=== PATIENT | male | born 1965 | race Caucasian/White ===

== ENCOUNTER 2017-12-22 02:25 | Emergency (ER) | payer SELFPAY ==
[2017-12-22] MEDS ORDERED: ASPIRIN 81 MG CHEW TAB PO ONE (02:36)
[2017-12-22] MEDS ORDERED: ASPIRIN 81 MG CHEW TAB ONE (02:36)
--- NOTE | 2017-12-22 02:38 | ED Physician Documentation ---
Chest Pain - HISTORIAN Historian: patient - HPI Stated Complaint: chest pain Chief Complaint: Chest Pain Onset: days ago (3) Timing: sudden onset Duration: waxing, waning Last known Well Date: 12/20/17 Last Known Well Time: 09:00 Last known Well Code/Unknown Code: Unknown Context: other (slight improvement with belching. 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 He states the pain started to increase over night and he had some pain in his left arm and wanted to come to the ER. He did not take any OTC meds for relief. Denies any history of TN or heart concerns) - ROS CONST: none MS/LYMPH: none GI/: none EYES/ENT: none SKIN/ENDO: none NEURO/PSYCH: none - PAST HX TN risk factors: other (reflux ) TAD/AAA risk factors: none Neuro deficit: none GI disease: GERD Lung disease: none Surgeries/Procedures: none Immunizations: referred to PCP Allergies/Adverse Reactions: Allergies Allergy/AdvReac Type Severity Reaction Status Date / Time No Known Allergies Allergy Verified 12/22/17 03:06 Home Medications: Ambulatory Orders Medication Instructions Recorded Omeprazole [Prilosec] 40 mg PO DAILY 12/22/17 - SOCIAL HX Smoking History: quit greater than 1 year Alcohol Use: none Drug Use: none - FAMILY HX Family HX: none - REVIEWED ASSESSMENTS Nursing Assessment Reviewed: Yes Vitals Reviewed: Yes Progress - Progress Progress: 0315: feels nausea after med and states like before after vomiting he feels better. DG 0350: less pain, nausea improved. DG ED Results Lab/Radiology - Radiology Radiology Impressions: PA and lateral chest Clinical history: CXR, CHEST PAIN X3 DAYS, WORSENING Findings: Examination of the chest in PA and lateral views with no prior films for comparison demonstrates lungs to be clear. Cardiovascular and mediastinal silhouettes are within normal limits. Bony thorax is intact. Impression: 1. Negative chest. Electronically signed on Dec 22, 2017 3:57:10 AM CDT by: Mj Aldana - Orders Orders: ED Orders Category Date Time Status Continuous EKG monitoring Q30M Care 12/22/17 02:37 Ordered Continuous Pulse Oximetry Q30M Care 12/22/17 02:[address] IV Lock 1T Care 12/22/17 02:37 Ordered CBC/PLATELET/DIFF Routine Lab 12/22/17 02:37 Ordered CKMB Stat Lab 12/22/17 Ordered CMP Routine Lab 12/22/17 02:37 Ordered CREATINE KINASE Routine Lab 12/22/17 02:37 Ordered TROPONIN I (cTnI) Stat Lab 12/22/17 02:37 Ordered Aspirin Med 12/22/17 02:36 Once 324 mg PO NOW ONE Oxygen Daily Oxygen 12/22/17 02:45 Ordered EKG WITH COMPARISON Stat Ther 12/22/17 02:37 Ordered Chest Pain Physical Exam - EXAM General Appearance: no acute distress, alert EENT: eye inspection normal Neck: nml inspection Respiratory: no resp. distress, chest non-tender, nml breath sounds CVS: reg. rate & rhythm, no murmur Abdomen: soft, normal bowel sounds Skin: warm/dry, normal color Extremities: non-tender, normal range of motion Neuro: oriented X3, CN's nml as tested, motor nml, sensation nml, mood/affect nml, cognition normal Discharge Clincal Impression: Reflux esophagitis Comments: 1. take Prilosec daily 2. follow up with PCP 2-4 days 3. Karnes diet 4. Decrease caffeine 5. Return to ER for increasing symptoms Condition: Stable Disposition: 01 HOME, SELF-CARE Decision to Admit: NO Date of Decison to Admit: 12/22/17 Decision Time: 04:12
[2017-12-22] MEDS ORDERED: MAG HYDROX/ALUMINUM HYD/SIMETH 30 ML, Lidocaine 2%Visc 15ml 20 MG, PHENobarb/HYOSCY/ATR... PO ONE ×3 (03:05)
[2017-12-22 03:07] LABS: BASOPHILS % 0.8 (0.0-1.5); EOSINOPHILS % 2.8 % (0.0-6.8); MEAN CORPUSCULAR HEMOGLOBIN 29.6 pg (28.0-34.0); MEAN CORPUSCULAR VOLUME 89.7 fl (80.0-100.0); MONOCYTES % 5.2 % (0.0-11.0); NEUTROPHILS # 4.8 # k/uL (1.4-7.7)
[2017-12-22] MEDS ORDERED: MAG HYDROX/ALUMINUM HYD/SIMETH 30 ML UDC PO ONE (03:08)
[2017-12-22] MEDS ORDERED: Lidocaine 2%Visc 15ml 20 MG/ML UDC ONE (03:08)
[2017-12-22] MEDS ORDERED: ONDANSETRON HCL/PF 4 MG/ 2ML VIAL IVP ONE (03:15)
[2017-12-22] MEDS ORDERED: ONDANSETRON HCL/PF 4 MG/ 2ML VIAL ONE (03:16)
[2017-12-22 03:25] LABS: eGFR (Non-African) > 60
[2017-12-22] MEDS ORDERED: PANTOPRAZOLE SODIUM INJ. 40 MG VIAL ONE (03:39)
[2017-12-22] MEDS ORDERED: 0.9 % SODIUM CHLORIDE 100 ML IV ONE (03:40)
[2017-12-22] MEDS ORDERED: PANTOPRAZOLE SODIUM 40 MG in 0.9 % SODIUM CHLORIDE 50 ML IV SCH (04:00)
[2017-12-22 05:05] VITALS: BP 141/76
--- NOTE | 2017-12-22 08:18 | Diagnostic Imaging Report ---
MARIA LUISA NEWELL [facility] [address] [facility] [address] [place], [place]. [address] Report Submission Date: Dec 22, 2017 3:57:10 AM CDT Patient Study Name: ARLETH ORY Date: Dec 22, 2017 3:36:32 AM CDT Modality Type: DX Gender: M Description: CHEST : 69 Institution: [facility] Physician: MARIA LUISA NEWELL PA and lateral chest Clinical history: CXR, CHEST PAIN X3 DAYS, WORSENING Findings: Examination of the chest in PA and lateral views with no prior films for comparison demonstrates lungs to be clear. Cardiovascular and mediastinal silhouettes are within normal limits. Bony thorax is intact. Impression: 1. Negative chest. Electronically signed on Dec 22, 2017 3:57:10 AM CDT by: Mj HUGHES
== END 2017-12-22 04:20 | disposition home or self-care (01) ==
LOC: ED 02:25
DX: K21.0 Gastro-esophageal reflux disease with esophagitis (principal)
CPT/HCPCS: 71046; 80053; 82550; 82553; 84484; 85025; 93005; A9270; J2405; 96365; 96375; 99283; S1016